=== PATIENT | female | born 1965 ===

== ENCOUNTER 2022-05-02 03:57 | Observation (INO) ==
[2022-05-02] MEDS ORDERED: NS 0.9% 1000 ml BAG 1,000 ML IV ONE (04:20)
[2022-05-02 04:42] LABS: ABS Eosinophils 0.2 10^3/ul (0-0.6); ABS Lymphocytes 1.5 10^3/ul (1.0-4.8); ABS Monocytes 0.7 10^3/ul (0-0.8); ABS Neutrophils 8.5 10^3/ul (1.5-7.7); Hematocrit 40 % (35-47); Hemoglobin 13.4 g/dL (12.0-16.0); Lymphocyte % 13.7 %; Mean Corpuscular HGB Conc 33 g/dL (31-36); Mean Corpuscular Hemoglobin 29 pg (27-31); Mean Corpuscular Volume 87 fL (80-97); Mean Platelet Volume 8.1 fL (7.4-10.4); Platelet Count 207 10^3/uL (150-450); Red Blood Count 4.58 10^6 /uL (3.70-4.87); Red Cell Distribution Width 14 % (10-15)
[2022-05-02 04:52] LABS: Activated Partial Thrombo Time 51.2 seconds (26.0-38.0); INR 1.02 (0.89-1.11)
[2022-05-02 05:05] LABS: ALT 36 U/L (7-52); AST 31 U/L (13-39); Albumin 4.2 g/dL (3.2-5.2); Albumin/Globulin Ratio 1.9 (1-3); Alcohol, S < 13 mg/dL (<13); Alkaline Phosphatase 86 U/L (35-149); Anion Gap 8 mmol/L (2-11); Blood Urea Nitrogen 13 mg/dL (6-24); CO2 Carbon Dioxide 24 mmol/L (22-32); Calcium 9.6 mg/dL (8.6-10.3); Chloride 104 mmol/L (101-111); Creatine Kinase 141 U/L (10-223); Globulin 2.2 g/dL (2-4); Glucose 148 mg/dL (70-100); Magnesium 2.1 mg/dL (1.9-2.7); Potassium 3.7 mmol/L (3.5-5.0); Sodium 136 mmol/L (135-145); Total Protein 6.4 g/dL (6.4-8.9); eGFR CKD-EPI 86.7 (>60)
[2022-05-02 05:19] LABS: TSH Ultra Thyroid Stim Horm 2.53 mcIU/mL (0.34-5.60)
[2022-05-02 05:45] LABS: Urine Appearance Clear; Urine Bilirubin Negative (Negative); Urine Blood 1+ (Negative); Urine Color Straw; Urine Glucose Negative (Negative); Urine Ketones Negative (Negative); Urine Nitrite Negative (Negative); Urine Protein 1+(30 mg/dL) (Negative); Urine Specific Gravity 1.012 (1.002-1.030); Urine Urobilinogen Negative (Negative)
[2022-05-02 06:08] LABS: Urine Benzodiazepine Screen None Detected (None Detect); Urine Cannabinoids Screen None Detected (None Detect); Urine Opiates Screen None Detected (None Detect)
[2022-05-02 06:11] LABS: Urine Bacteria 1+ (Absent); Urine Red Blood Cell Trace(0-2/hpf) (Absent); Urine Squamous Epithelial Cell Present (Absent); Urine White Blood Cell Trace(0-5/hpf) (Absent)
[2022-05-02] MEDS ORDERED: Iohexol 350 (CONTRAST) 500 ML MDV IV ONE (09:24)
[2022-05-02] MEDS ORDERED: LORazepam 2 mg VIAL 1 ml ONE ×2 (10:11→10:32)
[2022-05-02] MEDS ORDERED: levETIRAcetam IV 1,500 MG in NS 0.9% 100 ml BAG 100 ML IVPB ONE ×2 (10:35→11:50)
[2022-05-02] MEDS ORDERED: levETIRAcetam 500 MG IVPREMIX 500 MG/100 ML BAG IVPB ONE ×2 (10:35→11:50)
[2022-05-02] MEDS ORDERED: levETIRAcetam 1000MG IVPREMIX 1,000 MG/100 ML BAG IVPB ONE (11:49)
[2022-05-02] MEDS: levETIRAcetam 1000MG IVPREMIX 1,000 MG/100 ML BAG IVPB SCH ×2 (12:10→15:03)
[2022-05-02 12:37] LABS: Phosphorus 2.1 mg/dL (2.5-5.0)
[2022-05-02] MEDS ORDERED: SODIUM PHOSPHATE IV ONE (18:16)
[2022-05-02] MEDS ORDERED: NS IV ONE (18:16)
[2022-05-02] MEDS ORDERED: Enoxaparin 40 MG/0.4 ML SYR SUBCUT SCH (20:00)
[2022-05-02] MEDS: Venlafaxine XR 75 mg PO SCH (21:02)
[2022-05-02] MEDS: Mometasone/Formoter 200/5 MDI INH SCH (21:40)
[2022-05-02] MEDS: Fluticasone NASAL SPRAY 50MCG 16 gm SPRAY BTL INTRANASAL SCH (21:40)
[2022-05-02] MEDS ORDERED: hydrALAZINE 20 mg/ml 1 ML Vial IV IV SLOW PU ONE (22:34)
[2022-05-03] MEDS ORDERED: hydrALAZINE 20 mg/ml 1 ML Vial IV IV SLOW PU ONE (01:48)
[2022-05-03 06:40] LABS: Calcium 9.3 mg/dL (8.6-10.3); eGFR CKD-EPI 82.9 (>60)
[2022-05-03] MEDS: Venlafaxine XR 75 mg PO SCH (08:31)
[2022-05-03] MEDS: Fluticasone NASAL SPRAY 50MCG 16 gm SPRAY BTL INTRANASAL SCH (09:20)
[2022-05-03] MEDS: Mometasone/Formoter 200/5 MDI INH SCH (09:20)
[2022-05-03 12:54] VITALS: BP 151/90
== END 2022-05-03 13:00 | disposition home or self-care (01) ==
LOC: ED 03:57 → EDHOLD 03:57
PROVIDERS: ADMIT Internal Medicine; ATTEND Internal Medicine